=== PATIENT | male | born 1970 | race Caucasian/White ===

== ENCOUNTER 2021-02-09 12:51 | Emergency (ER) | payer OTHER ==
[~2021-02-09] VITALS: Ht 172.7 cm; Wt 70.0 kg
[2021-02-09 12:59] VITALS: BP 113/65
--- NOTE | 2021-02-09 13:26 | ED.ADGEN ---
General Adult EDM: Chief Complaint: MECHANICAL FALL HPI: HPI: Patient is a 50 year old male who in for pain in his right low back and buttocks, rating down his right leg. Patient slipped on his steps at home last night. Patient states he went down about 10-12 steps on his bottom. Denies any head injury or other injuries. States he felt straight down but mostly to his right. He has a history of sciatica on the left. Review of Systems: Review of Systems: All other systems within normal limits except for as noted in the HPI Physical Exam: PE: Constitutional: Well developed, well nourished, no acute distress, non-toxic appearance. [] HENT: Normocephalic, atraumatic, bilateral external ears normal, nose normal. [] Eyes: PERRLA, conjunctiva normal, no discharge. [] Neck: No rigidity, supple, no stridor. [] Cardiovascular: Regular rate and rhythm, brisk cap refill [] Lungs & Thorax: Non labored symmetric respirations, no tachypnea or respiratory distress [] Abdomen: Soft, nondistended. Skin: Warm, dry, no erythema, no rash. [] Back: Unremarkable, no step-off or deformity, no point spinal tenderness, tenderness over right sacroiliac joint. Extremities: No deformities, range of motion grossly intact, no lower extremity edema [] Neurologic: Alert and oriented X 3, no focal deficits noted. [] Psychologic: Affect normal, judgement normal, mood normal. [] Current Patient Data: Vital Signs: Vital Signs Date Time Temp Pulse Resp B/P (MAP) Pulse Ox O2 Delivery O2 Flow Rate FiO2 02/09/21 12:59 98.8 85 16 113/65 97 Room Air 98.8 EKG: EKG: [] Heart Score: C/O Chest Pain: No Risk Factors: Risk Factors: DM, Current or recent (<one month) smoker, HTN, HLP, family history of CAD, obesity. Risk Scores: Score 0 - 3: 2.5% MACE over next 6 weeks - Discharge Home Score 4 - 6: 20.3% MACE over next 6 weeks - Admit for Clinical Observation Score 7 - 10: 72.7% MACE over next 6 weeks - Early Invasive Strategies Radiology/Procedures: Radiology/Procedures: [facility] [address] [place] [address] IMAGING REPORT Signed PATIENT: AMERICA COLEMAN ACCOUNT: [id number] : 1970 LOCATION: ER AGE: 50 SEX: M EXAM STATUS: REG ER ORD. PHYSICIAN: DONAVAN PICHARDO MD REASON: pt fell, low back pain PROCEDURE: LUMBAR SPINE 2-3V Exam Date: 02/09/2021 1:24 PM XR SACRUM AND COCCYX 2+VIEWS, XR LUMBAR SPINE 2-3V Indication: Reason: pt fell, low back pain / Spl. Instructions: / History: . FINDINGS/ IMPRESSION: Lumbar spine: Anatomic alignment is maintained without spondylolisthesis. The vertebral body heights are maintained without evidence of compression fracture. Mild disc space narrowing is seen at multiple levels with small osteophytes and mild facet joint arthropathy. The visualized soft tissues are within normal limits. Sacrum and coccyx: Degenerative changes are present in the SI joints bilaterally. No significant SI joint ankylosis or erosions are seen. No acute fracture. Alignment is maintained. Soft tissues are normal. Electronically signed by: Cammie Ramos MD (02/09/2021 2:52 PM) [facility] DICTATED and SIGNED BY: CAMMIE RAMOS MD DATE: 02/09/21 [id number] [] Course & Med Decision Making: Course & Med Decision Making Pertinent Labs and Imaging studies reviewed. (See chart for details) [] Dragon Disclaimer: Dragon Disclaimer: This electronic medical record was generated, in whole or in part, using a voice recognition dictation system. Departure Departure Impression: Primary Impression: Fall down stairs Additional Impression: Sacral contusion Disposition: HOME / SELF CARE / HOMELESS Condition: STABLE Patient Instructions: Contusion Scripts Ibuprofen (IBUPROFEN) 800 Mg Tablet 800 MG PO PRN Q8HRS PRN for PAIN, #20 TAB Prov: DONAVAN PICHARDO MD 02/09/21 Problem Qualifiers DONAVAN PICHARDO MD Feb 09, 2021 13:26
--- NOTE | 2021-02-09 14:54 | RAD ---
Exam Date: 02/09/2021 1:24 PM XR SACRUM AND COCCYX 2+VIEWS, XR LUMBAR SPINE 2-3V Indication: Reason: pt fell, low back pain / Spl. Instructions: / History: . FINDINGS/ IMPRESSION: Lumbar spine: Anatomic alignment is maintained without spondylolisthesis. The vertebral body heights are maintaine d without evidence of compression fracture. Mild disc space narrowing is seen at multiple levels wit h small osteophytes and mild facet joint arthropathy. The visualized soft tissues are within normal limits. Sacrum and coccyx: Degenerative changes are present in the SI joints bilaterally. No significant SI joint ankylosis or erosions are seen. No acute fracture. Alignment is maintained. Soft tissues are normal. Electronically signed by: Agusto Ramos MD (02/09/2021 2:52 PM) LEE[facility]
[2021-02-09] MEDS ORDERED: IBUP-1060 PO (14:58)
== END 2021-02-09 15:12 | disposition home or self-care (01) ==
LOC: ER 12:51
DX: S30.0XXA Contusion of lower back and pelvis, initial encounter (principal); W10.8XXA Fall (on) (from) other stairs and steps, initial encounter; Y93.89 Activity, other specified; Y92.89 Other specified places as the place of occurrence of the external cause; Y99.8 Other external cause status
CPT/HCPCS: 36430; 72100; 72220; 99284